=== PATIENT | male | born 1990 | race Caucasian/White ===

== ENCOUNTER 2017-03-27 18:59 | Emergency (ER) | payer SELFPAY ==
[2017-03-27 19:30] VITALS: BP 121/63; BMI 23.0
[2017-03-27] MEDS ORDERED: ONDANSETRON *ODT* 4 MG TABLET ONE (19:41)
[2017-03-27] MEDS ORDERED: ONDANSETRON *ODT* 4 MG TABLET SL ONE (19:51)
--- NOTE | 2017-03-27 19:54 | PDOC ---
History of Present Illness - General Chief Complaint: Cold Symptoms Stated Complaint: COLD SYMPTOMS Time Seen by Provider: 03/27/17 19:42 History Source: Patient Exam Limitations: No Limitations - History of Present Illness Initial Comments: CHIEF COMPLAINT: 27 y/o febrile, tachycardic male diagnosed with flu today here for vomiting. HISTORY OF PRESENT ILLNESS: The patient states he started feeling horrible today with flu like symptoms so he went to urgent care where they swabbed him and diagnosed him with the "bad flu". He was given a prescription for tamiflu. He tried taking the tamiflu twice but vomited it up 2 times. Past History - Past Medical History Allergies/Adverse Reactions: Allergies Allergy/AdvReac Type Severity Reaction Status Date / Time No Known Allergies Allergy Verified 03/27/17 19:21 Home Medications: Ambulatory Orders Ibuprofen [Advil -] 200 mg PO QID 03/27/17 Ondansetron [Zofran Odt -] 4 mg SL TID #10 od.tablet 03/27/17 Oseltamivir Phosphate [Tamiflu -] 75 mg PO BID 03/27/17 - Suicide/Smoking/Psychosocial Hx Smoking History: Never smoked Have you smoked in the past 12 months: No Information on smoking cessation initiated: No Hx Alcohol Use: No Drug/Substance Use Hx: Yes ([facility]) Review of Systems - Review of Systems Able to Perform ROS?: Yes Constitutional: Yes: Chills, Fever, Other (body aches) HEENTM: Yes: Nose Congestion, Throat Pain. No: Ear Pain, Ear Discharge, Nose Bleeding, Difficulty Swallowing Respiratory: Yes: Cough, Other (chest discomfort with cough). No: Shortness of Breath, Wheezing, Productive cough ABD/GI: Yes: Nausea, Vomiting. No: Diarrhea Neurological: No: Symptoms reported *Physical Exam - Vital Signs Last Vital Signs Temp Pulse Resp BP Pulse Ox 101 F H 106 H 20 121/63 100 03/27/17 19:24 03/27/17 19:24 03/27/17 19:24 03/27/17 19:24 03/27/17 19:24 - Physical Exam Comments: Ambulatory male, non toxic but ill appearing General Appearance: Yes: Nourished, Appropriately Dressed. No: Apparent Distress HEENT: positive: EOMI, SENIA, Nasal Congestion, Rhinorrhea Respiratory/Chest: positive: Lungs Clear, Normal Breath Sounds. negative: Respiratory Distress, Rhonchi, Wheezing Cardiovascular: positive: Regular Rhythm, Tachycardia Medical Decision Making - Medical Decision Making A/P: 27 y/o febrile, tachycardic male with diagnosed flu today and vomiting. Plan is as follows: 1. sl zofran 2. PO tylenol 3. IM toradol 4. reassess The patient states he now feels a lot better and he looks much better. His fever has reduced and he is no longer tachycardic. Will discharge to home with supportive care instructions and rx for zofran. Instructed him to return to the ER with any worsening or concerning symptoms. the patient verbalizes understanding of all instructions, has no further questions and is awaiting discharge. *DC/Admit/Observation/Transfer Diagnosis at time of Disposition: Influenza - Discharge Dispostion Disposition: HOME Condition at time of disposition: Improved - Prescriptions Prescriptions: Ondansetron [Zofran Odt -] 4 mg SL TID #10 od.tablet - Referrals Referrals: Duane Mejia MD, MD [Primary Care Provider] - - Patient Instructions Printed Discharge Instructions: DI for Influenza -- Adult Additional Instructions: Discharge Instructions: -You have the flu -Alternate between 650mg of tylenol and 600mg of Ibuprofen every 3 hours for fever/body aches -Take zofran as prescribed if needed for nausea and vomiting. -Drink plenty of fluids -Get lots of rest -Return to the ER with any worsening or concerning symptoms - Post Discharge Activity
[2017-03-27] MEDS ORDERED: ACETAMINOPHEN 325 MG TABLET (FP) PO ONE (19:55)
[2017-03-27] MEDS ORDERED: KETOROLAC TROMETHAMINE 60 MG/2 ML VIAL IM ONE (19:55)
[2017-03-27] MEDS ORDERED: KETOROLAC TROMETHAMINE 60 MG/2 ML VIAL ONE (19:58)
[2017-03-27] MEDS ORDERED: ACETAMINOPHEN 325 MG TABLET (FP) ONE (20:37)
[2017-03-27 21:18] VITALS: PULSE 96; TEMP 100.5
== END 2017-03-27 21:22 | disposition home or self-care (01) ==
LOC: JERFT 18:59
DX: J11.1 Influenza due to unidentified influenza virus with other respiratory manifestations (principal)
CPT/HCPCS: 99281-25